=== PATIENT | male | born 1955 | race Caucasian/White ===

== ENCOUNTER 2019-04-29 12:19 | Emergency (ER) | payer OTHER ==
[2019-04-29 13:26] LABS: ADD MAN DIFF? NO
[2019-04-29 13:34] LABS: BASOPHILS % 0.5 % (0.0-2.0); EOSINOPHILS # 0.1 10^3/ul (0.0-0.5); EOSINOPHILS % 0.8 % (0.0-7.0); HEMATOCRIT 41.1 % (42.0-52.0); HEMOGLOBIN 13.8 g/dl (14.0-18.0); LYMPHOCYTES # 1.2 10^3/ul (0.8-2.9); LYMPHOCYTES % 18.5 % (15.0-51.0); MEAN CORPUSCULAR HEMOGLOBIN 30.9 pg (29.0-33.0); MEAN CORPUSCULAR HGB CONC 33.6 g/dl (32.0-37.0); MEAN CORPUSCULAR VOLUME 92.2 fl (82.0-101.0); MEAN PLATELET VOLUME 10.5 fl (7.4-10.4); MONOCYTE # 0.8 10^3/ul (0.3-0.9); MONOCYTES % 12.6 % (0.0-11.0); NEUTROPHIL # 4.4 10^3/ul (1.6-7.5); NEUTROPHILS % 67.3 % (39.0-77.0); PLATELET COUNT 183 10^3/UL (140-415); RED BLOOD COUNT 4.46 10^6/ul (4.70-6.10); RED CELL DISTRIBUTION WIDTH 13.3 % (11.5-14.5)
[2019-04-29 13:34] LABS: WHITE BLOOD COUNT 6.5 10^3/ul (4.8-10.8)
[2019-04-29] MEDS: LACTATED RINGER'S 1,000 ML IV ×2 (13:45→14:32)
[2019-04-29 13:50] LABS: ALANINE AMINOTRANSFERASE 46 IU/L (13-69); ALBUMIN 4.4 g/dl (3.3-4.9); ALBUMIN/GLOBULIN RATIO 1.33; ALKALINE PHOSPHATASE 56 IU/L (42-121); ANION GAP 17 (5-13); ASPARTATE AMINO TRANSFERASE 38 IU/L (15-46); BLOOD UREA NITROGEN 33 mg/dl (7-20); CALCIUM 8.8 mg/dl (8.4-10.2); CARBON DIOXIDE 17 mmol/L (21-31); CHLORIDE 103 mmol/L (97-110); CREATININE 1.61 mg/dl (0.61-1.24); Estimated GFR 44 mL/min (>60); GLUCOSE 325 mg/dl (70-220); LIPASE 480 U/L (23-300); POTASSIUM 4.1 mmol/L (3.5-5.1); SODIUM 137 mmol/L (135-144); TOTAL PROTEIN 7.7 g/dl (6.1-8.1)
[2019-04-29 13:51] LABS: INR 0.89; PROTIME 12.2 Sec (11.9-14.9)
[2019-04-29 13:52] LABS: PARTIAL THROMBOPLASTIN TIME 22.9 Sec (23.0-35.0)
[2019-04-29 14:01] LABS: TROPONIN-I < 0.012 ng/ml (0.000-0.120)
[2019-04-29] MEDS: LOPERAMIDE 2 MG CAP PO (14:32)
== END 2019-04-29 15:45 | disposition home or self-care (01) ==
LOC: E/R 12:19
DX: E86.0 Dehydration (principal); I10 Essential (primary) hypertension; E11.9 Type 2 diabetes mellitus without complications; N17.9 Acute kidney failure, unspecified; K85.90 Acute pancreatitis without necrosis or infection, unspecified; Z79.4 Long term (current) use of insulin; Z79.01 Long term (current) use of anticoagulants; Z79.82 Long term (current) use of aspirin
CPT/HCPCS: 36415; 74176; 80053; 83690; 84484; 85025; 85610; 85730; 86850; 86900; 86901; 93005; 96360; 99285-25